=== PATIENT | female | born 1970 | race African-American/Black ===

== ENCOUNTER 2020-03-07 23:04 | Emergency (ER) | payer OTHER | END 2020-03-07 23:55 | disposition left against medical advice (07) | LOC: ER 23:04 | DX: R06.02 Shortness of breath (principal); R50.9 Fever, unspecified; Z53.21 Procedure and treatment not carried out due to patient leaving prior to being seen by health care provider; Z20.828 Contact with and (suspected) exposure to other viral communicable diseases | CPT/HCPCS: 36415; 87426 ==